=== PATIENT | male | born 1970 | race Caucasian/White ===

== ENCOUNTER 2022-10-17 17:56 | Emergency (ER) | payer OTHER ==
[2022-10-17 18:15] VITALS: BP 215/116; PULSE 90
[2022-10-17] MEDS ORDERED: Bacitracin Oint 1 GM U/D Packet TOP ONE (18:15)
[2022-10-17] MEDS ORDERED: Lidocaine 1% 5 ML VIAL INJECT ONE (18:15)
== END 2022-10-17 18:49 | disposition home or self-care (01) ==
LOC: JP.ED 17:56
DX: S81.831A Puncture wound without foreign body, right lower leg, initial encounter (principal); I10 Essential (primary) hypertension; W26.8XXA Contact with other sharp object(s), not elsewhere classified, initial encounter
CPT/HCPCS: 99283